=== PATIENT | female | born 1995 | race Hispanic/Latino ===

== ENCOUNTER 2017-01-23 18:47 | Emergency (ER) | payer BC ==
[2017-01-23] MEDS ORDERED: diphenhydrAMINE HCl 50 MG/ML 1 ML VIAL ONE (19:28)
[2017-01-23] MEDS ORDERED: Ketorolac Tromethamine 30 MG/ML VIAL ONE (19:28)
[2017-01-23] MEDS ORDERED: Prochlorperazine 10 MG/2 ML VIAL ONE (19:28)
== END 2017-01-23 21:12 | disposition home or self-care (01) ==
LOC: SCSER 18:47
DX: R51 Headache (principal)
CPT/HCPCS: 96361; 96374; 96375; J0780; J1200; J1885